=== PATIENT | female | born 1980 | race Asian ===

== ENCOUNTER 2021-01-27 10:33 | Inpatient (IN) | payer OTHER ==
[~2021-01-27] VITALS: Ht 165.1 cm; Wt 90.3 kg
[2021-01-27] MEDS ORDERED: LACTATED RINGERS 500 ML IV ONE (10:55)
[2021-01-27] MEDS ORDERED: METHYLERGONOVINE 0.2 MG/ML AMP IM PRN (10:55)
[2021-01-27] MEDS ORDERED: LACTATED RINGERS 1,000 ML IV SCH (10:55)
[2021-01-27] MEDS ORDERED: CARBOPROST 250 MCG/ML AMP IM PRN (10:55)
[2021-01-27] MEDS ORDERED: PNV91TAB8 PO (11:05)
[2021-01-27 11:46] LABS: APPEARANCE,URINE CLEAR (CLEAR); BILIRUBIN,URINE NEGATIVE (NEGATIVE); BLOOD, URINE 1+ (NEGATIVE); COLOR,URINE YELLOW (YELLOW); LEUKOCYTE ESTERASE ,URINE NEGATIVE (NEGATIVE); NITRITE, URINE NEGATIVE (NEGATIVE); PH,URINE 6.5 (5.0-9.0); UGLUCOSE NEGATIVE (NEGATIVE)
[2021-01-27 11:46] LABS: BASOPHILS # (AUTO) 0.1 K/uL (0.00-0.22); BASOPHILS % (AUTO) 0.7 % (0.0-2.0); EOSINOPHILS # (AUTO) 0.3 K/uL (0-0.4); EOSINOPHILS % (AUTO) 3.5 % (0.0-4.0); HEMATOCRIT 40.1 % (36-48); HEMOGLOBIN 13.9 g/dL (12.0-16.0); LYMPHOCYTES # (AUTO) 1.3 K/uL (2.5-16.5); LYMPHOCYTES % (AUTO) 13.3 % (20.5-51.1); MEAN CORPUSCULAR HEMOGLOBIN 32 pg (27-31); MEAN CORPUSCULAR HGB CONC 35 g/dL (33-37); MEAN CORPUSCULAR VOLUME 92.7 fL (80-94); MONOCYTES % (AUTO) 9.8 % (1.7-9.3); NEUTROPHILS # (AUTO) 7.1 K/uL (1.8-7.7); NEUTROPHILS % (AUTO) 72.7 % (42.2-75.2); PLATELET COUNT (AUTO) 185 K/uL (140-450); RED BLOOD CELL COUNT(AUTO) 4.32 MIL/uL (4.20-5.40); RED CELL DISTRIBUTION WIDTH 13.6 % (11.6-13.7); WHITE BLOOD COUNT (AUTO) 9.7 K/uL (4.8-10.8)
[2021-01-27 11:49] LABS: RBC,URINE 0-5 /HPF (0-5); WBC,URINE 0-5 /HPF (0-5)
[2021-01-27 12:03] LABS: PROTHROMBIN TIME 8.9 secs (10.8-13.4)
[2021-01-27 12:10] LABS: ALBUMIN 2.5 g/dL (3.4-5.0); ANION GAP 11.8 (8-16); CARBON DIOXIDE 22.1 mmol/L (21-32); CREATININE 0.6 mg/dL (0.6-1.3); POTASSIUM 3.9 mmol/L (3.5-5.1); TOTAL BILIRUBIN 0.4 mg/dL (0.0-1.0); URIC ACID 5.6 mg/dL (2.6-7.2)
[2021-01-27] MEDS ORDERED: OXYTOCIN 20 UNITS/LR PREMIX 1,000 ML IV ONE (12:53)
[2021-01-27 19:56] VITALS: BP 136/84
[2021-01-27] MEDS ORDERED: ROPIVACAINE 0.2%/NS PREMIX 200 ML EPI ONE (21:29)
[2021-01-28] MEDS ORDERED: BENZOCAINE/MENTHOL 20%-0.5% 60 GM CAN TP PRN (02:30)
[2021-01-28] MEDS ORDERED: bisacodyL 5 MG TABEC PO PRN (02:30)
[2021-01-28] MEDS ORDERED: OXYTOCIN 10 UNITS/ML VIAL IM PRN (02:30)
[2021-01-28] MEDS ORDERED: METHYLERGONOVINE 0.2 MG/ML AMP IM PRN (02:30)
[2021-01-28] MEDS ORDERED: SIMETHICONE 80 MG TAB.CHEW PO PRN (02:30)
[2021-01-28] MEDS ORDERED: DOCUSATE SODIUM 100 MG GELCAP PO PRN (02:30)
[2021-01-28] MEDS ORDERED: MEASLES, MUMPS, AND RUBELLA 1 VIAL SQVAC ONE (02:30)
[2021-01-28] MEDS ORDERED: IBUPROFEN 600 MG TAB PO PRN (02:30)
[2021-01-28] MEDS ORDERED: METHYLERGONOVINE 0.2 MG TAB PO PRN (02:30)
[2021-01-28] MEDS: IBUPROFEN 800 MG TAB PO PRN (06:56)
--- NOTE | 2021-01-28 09:20 | NUR ---
PATIENT HAS BEEN SCREENED AND CATEGORIZED LOW NUTRITION RISK. PATIENT WILL BE SEEN WITHIN 7 DAYS OF ADMISSION. 02/02/[address]
[2021-01-29] MEDS: IBUPROFEN 800 MG TAB PO PRN ×2 (06:33→19:06)
[2021-01-29 09:19] LABS: HEMATOCRIT 34.5 % (36-48)
[2021-01-30] MEDS: IBUPROFEN 800 MG TAB PO PRN (08:06)
== END 2021-01-30 10:35 | disposition home or self-care (01) | DRG 560 ==
LOC: MLD 10:33 → MFCC 01-28 07:30
PROVIDERS: ADMIT Obstetrics & Gynecology; ATTEND Obstetrics & Gynecology
PROC: 10E0XZZ Delivery of Products of Conception, External Approach (ICD-10-PCS; principal; 2021-01-28)
PROC: 0UQGXZZ Repair Vagina, External Approach (ICD-10-PCS; 2021-01-28)
PROC: 3E033VJ Introduction of Other Hormone into Peripheral Vein, Percutaneous Approach (ICD-10-PCS; 2021-01-28)
PROC: 3E0R3BZ Introduction of Anesthetic Agent into Spinal Canal, Percutaneous Approach (ICD-10-PCS; 2021-01-28)
PROC: 00HU33Z Insertion of Infusion Device into Spinal Canal, Percutaneous Approach (ICD-10-PCS; 2021-01-28)
PROC: 3E0134Z Introduction of Serum, Toxoid and Vaccine into Subcutaneous Tissue, Percutaneous Approach (ICD-10-PCS; 2021-01-28)
PROC: 3E0234Z Introduction of Serum, Toxoid and Vaccine into Muscle, Percutaneous Approach (ICD-10-PCS; 2021-01-28)
DX: O14.94 Unspecified pre-eclampsia, complicating childbirth (principal); R71.0 Precipitous drop in hematocrit; K59.00 Constipation, unspecified; O99.62 Diseases of the digestive system complicating childbirth; O71.4 Obstetric high vaginal laceration alone; Z23 Encounter for immunization; Z37.0 Single live birth; Z3A.39 39 weeks gestation of pregnancy
CPT/HCPCS: 36415; 59409; 80053; 81001; 82570; 84550; 85018; 85025; 85610; 85730; 86592; 86886; 86900; 86901; J2590; J2795